=== PATIENT | male | born 1970 | race Two or more races ===

== ENCOUNTER 2021-11-24 10:03 | Emergency (ER) | payer OTHER ==
[2021-11-24 10:13] VITALS: BP 116/66; PULSE 72; TEMP 98; BMI 40.1
[2021-11-24] MEDS ORDERED: KETOROLAC TROMETHAMINE 30 MG/1 ML VIAL IM ONE (12:03)
[2021-11-24] MEDS ORDERED: KETOROLAC TROMETHAMINE 30 MG/1 ML VIAL ONE (12:18)
[2021-11-24] MEDS ORDERED: ACETAMINOPHEN 500 MG TABLET (FP) PO ONE (14:04)
[2021-11-24] MEDS ORDERED: ACETAMINOPHEN 500 MG TABLET (FP) ONE (14:22)
== END 2021-11-24 15:22 | disposition home or self-care (01) ==
LOC: JERFT 10:03
PROC: 3E023GC Introduction of Other Therapeutic Substance into Muscle, Percutaneous Approach (ICD-10-PCS; principal; 2021-11-24)
DX: M54.50 Low back pain, unspecified (principal)
CPT/HCPCS: 72131-TC; 99284-25

== ENCOUNTER 2023-02-04 20:47 | Day surgery (SDC) | payer OTHER ==
[2023-02-04 20:53] VITALS: BMI 34.4
[2023-02-04] MEDS ORDERED: ACETAMINOPHEN 1000 MG/100 ML BAG IVPB ONE (22:01)
[2023-02-04] MEDS ORDERED: ACETAMINOPHEN INJECTION 100 ML IVPB ONE (22:15)
[2023-02-04 22:22] LABS: BASO % 0.7 % (0-2.0); HEMATOCRIT 41.2 % (35.4-49); HEMOGLOBIN 13.9 GM/dL (11.7-16.9); LYMPH % 20.4 % (8-40); MCH 29.7 pg (25.7-33.7); MCHC 33.8 g/dl (32.0-35.9); MEAN CELL VOLUME 87.9 fl (80-96); MEAN PLT VOLUME 7.2 fl (7.5-11.1); MONO % 10.8 % (3.8-10.2); NEUT % 67.1 % (42.8-82.8); PLATELET COUNT 405 10^3/uL (134-434); RBC 4.68 M/mm3 (4.00-5.60); RDW 14.2 % (11.9-15.9); WHITE BLOOD COUNT 10.4 K/mm3 (4.0-10.0)
[2023-02-04 22:32] LABS: INR 1.15 (0.83-1.09); PROTHROMBIN TIME (PATIENT) 13.3 SEC (9.7-13.0)
[2023-02-04 22:35] LABS: ACTIVATED PTT 28.8 SECONDS (25.2-36.5)
[2023-02-04 22:37] LABS: PH,URINE 5.5 (5.0-8.0); URINE APPEARANCE CLEAR; URINE BILIRUBIN NEGATIVE (NEGATIVE); URINE COLOR YELLOW; URINE GLUCOSE (UA) TRACE (NEGATIVE); URINE KETONE TRACE (NEGATIVE); URINE LEUK ESTERASE NEGATIVE (NEGATIVE); URINE NITRITE NEGATIVE (NEGATIVE); URINE PROTEIN NEGATIVE (NEGATIVE)
[2023-02-04 22:48] LABS: POTASSIUM 4.2 mmol/L (3.5-5.1)
[2023-02-04 22:50] LABS: ALBUMIN 3.7 g/dl (3.4-5.0); BLOOD UREA NITROGEN 13.1 mg/dL (7-18); CALCIUM 9.3 mg/dL (8.5-10.1)
[2023-02-04 22:53] LABS: CREATININE 0.8 mg/dL (0.55-1.3)
[2023-02-04 22:55] LABS: BILIRUBIN,TOTAL 0.3 mg/dL (0.2-1); TOT PROT 7.4 g/dl (6.4-8.2)
[2023-02-05] MEDS ORDERED: LIDOCAINE 1% P/F 10 MG/ML VIAL INF ONE
[2023-02-05] MEDS ORDERED: BUPIVACAINE HCL/PF 0.5% (5MG/ML) 10 ML VIAL IJ ONE
[2023-02-05] MEDS ORDERED: KETOROLAC TROMETHAMINE 15 MG/ML VIAL IVPUSH ONE (02:29)
[2023-02-05] MEDS ORDERED: KETOROLAC TROMETHAMINE 15 MG/ML VIAL ONE (02:36)
[2023-02-05] MEDS ORDERED: metroNIDAZOLE 250 MG TABLET PO ONE (03:13)
[2023-02-05] MEDS ORDERED: metroNIDAZOLE 250 MG TABLET ONE (03:27)
[2023-02-05] MEDS ORDERED: LIDOCAINE HCL 1%, 10 MG/ML (10ML VIAL) MDV ONE (08:30)
[2023-02-05] MEDS ORDERED: BUPIVACAINE HCL/PF 0.5% (5MG/ML) 10 ML VIAL ONE (08:30)
[2023-02-05] MEDS ORDERED: ACETAMINOPHEN INJECTION 100 ML IVPB ONE (09:19)
[2023-02-05] MEDS ORDERED: MIDAZOLAM HCL 2 MG/2 ML SINGLE DOSE VIAL ONE (09:28)
[2023-02-05] MEDS ORDERED: ceFAZolin SODIUM 1 GM VIAL IVPB ONE ×2 (09:30)
[2023-02-05] MEDS ORDERED: PROPOFOL 20 ML ONE (09:40)
[2023-02-05] MEDS ORDERED: LIDOCAINE 1%/EPI 1:100000 (50 ML MULTI DOSE VIAL) INF ONE ×2 (09:42)
[2023-02-05] MEDS: IBUPROFEN 400 MG TABLET (FP) PO PRN ×2 (15:05→22:21)
[2023-02-05] MEDS: AMOX TR/POT CLAV 875MG/125MG TABLETS (FP) PO SCH (16:56)
[2023-02-06 00:12] VITALS: RESP 18
[2023-02-06] MEDS: ACETAMINOPHEN 1000 MG/100 ML BAG IVPB PRN ×2 (07:04→12:04)
[2023-02-06 08:15] LABS: BASO % 0.6 % (0-2.0); EOS % 1.2 % (0-4.5); HEMOGLOBIN 13.6 GM/dL (11.7-16.9); LYMPH % 20.1 % (8-40); MCH 30.4 pg (25.7-33.7); MCHC 34.8 g/dl (32.0-35.9); MEAN CELL VOLUME 87.3 fl (80-96); MEAN PLT VOLUME 7.5 fl (7.5-11.1); MONO % 10.6 % (3.8-10.2); NEUT % 67.5 % (42.8-82.8); PLATELET COUNT 350 10^3/uL (134-434); RBC 4.47 M/mm3 (4.00-5.60); RDW 13.9 % (11.9-15.9); WHITE BLOOD COUNT 7.4 K/mm3 (4.0-10.0)
[2023-02-06 08:32] LABS: POTASSIUM 4.5 mmol/L (3.5-5.1)
[2023-02-06 08:34] LABS: CALCIUM 8.9 mg/dL (8.5-10.1)
[2023-02-06 08:35] LABS: ALBUMIN 3.1 g/dl (3.4-5.0); BLOOD UREA NITROGEN 10.3 mg/dL (7-18)
[2023-02-06 08:38] LABS: CREATININE 0.7 mg/dL (0.55-1.3)
[2023-02-06 08:39] LABS: TOT PROT 6.4 g/dl (6.4-8.2)
[2023-02-06 08:42] LABS: BILIRUBIN,TOTAL 0.4 mg/dL (0.2-1)
[2023-02-06] MEDS: AMOX TR/POT CLAV 875MG/125MG TABLETS (FP) PO SCH (09:20)
[2023-02-06 14:59] VITALS: BP 104/70; PULSE 81; TEMP 99.2
== END 2023-02-06 16:06 | disposition home or self-care (01) ==
LOC: JER 20:47 → UNDOADMIN 02-05 02:48 → JERBED 02-05 02:48 → J8W 02-05 08:16 → JASUSAT 02-05 14:53 → J8W 02-05 14:59 → JASUSAT 02-06 16:06
PROVIDERS: ATTEND Internal Medicine
PROC: 0D9P0ZX Drainage of Rectum, Open Approach, Diagnostic (ICD-10-PCS; principal; 2023-02-05 08:00)
DX: K61.1 Rectal abscess (principal)
CPT/HCPCS: 0241U-QW; 36415; 72193-TC; 80053; 81003; 82272; 82962; 83605; 85025; 85610; 85730; 86850; 86900; 86901; 87040; 87070; 87077; 87086; 87186; 87205; 94010; 94760; 99285-25; Q9967